=== PATIENT | male | born 1975 | race African-American/Black ===

== ENCOUNTER 2019-07-15 07:55 | Day surgery (SDC) | payer OTHER ==
[2019-07-14 13:08] LABS: HEMATOCRIT 47.2 % (42.0-54.0); HEMOGLOBIN 16.5 g/dL (13.5-17.5); MCH 32.4 pg (26.0-34.0); MCV 92.7 fL (80.0-100.0); MEAN PLATELET VOLUME 10.3 fL (7.4-10.4); RBC 5.09 10x6/uL (4.20-6.10); RDW 13.8 % (11.5-14.5)
[~2019-07-15] VITALS: Ht 175.3 cm; Wt 104.3 kg
[~2019-07-15 07:55] MED LIST: COZAAR25 MG; NORVASC10 MG PO
[2019-07-15 08:48] VITALS: BP 162/102; Ht 175.3 cm; Wt 104.3 kg
[2019-07-15] MEDS ORDERED: VISTARIL50 MG PO (11:28)
[2019-07-15] MEDS ORDERED: PERCOCET 10-321 EAC1 PO (11:28)
[2019-07-15] MEDS ORDERED: ZOFRAN ODT4 MG/UDTAB PO (11:29)
[2019-07-15] MEDS ORDERED: TORADOL10 MG PO (11:29)
--- NOTE | 2019-07-17 14:16 | OP ---
PATIENT NAME: CELINE WILKES MEDICAL RECORD: [id number] :73 LOCATION:[facility] ADMISSION DATE: SURGEON: CHRISTIAN WADE DO DATE OF OPERATION: 07/15/2019 PROCEDURE PERFORMED: Right shoulder arthroscopy with rotator cuff repair, biceps tenodesis, labral debridement, subacromial decompression, distal clavicle excision. PREOPERATIVE DIAGNOSES: Right shoulder rotator cuff tear, superior labral anterior-posterior tear, acromioclavicular joint arthritis and subacromial impingement. POSTOPERATIVE DIAGNOSES: Right shoulder rotator cuff tear, superior labral anterior-posterior tear, acromioclavicular joint arthritis and subacromial impingement. INDICATIONS: Mr. Wilkes is a 44-year-old male who has had right shoulder pain for quite some time. He is tired dealing with it. He got an MRI, showed the above findings. I informed him of the risk including retear, infection, bleeding, nonhealing tear. Rotator cuff tear was repaired with Regeneten patch. He was aware of the risks including infection, bleeding, damage to nerves and vessels, need for further surgery, continued shoulder pain, retear of the rotator cuff and not healing as well as the restrictions with motion. He was okay with those and signed the consent. SURGEON: Christian Wade DO DESCRIPTION OF PROCEDURE: The patient was given a block by anesthesia in the preoperative area, taken to the operative suite, laid in the left lateral decubitus position with right shoulder up. He was given 2 grams Ancef and 900 mg clindamycin preoperatively. He was sedated and LMA was placed. Right shoulder was then prepped and draped in sterile fashion. Timeout was performed, everyone was in agreeance with the correct side, site, patient and procedure. We then began with insufflating the shoulder joint itself through the posterior portal with an 18-gauge spinal needle. A 60 cc of normal saline into the joint. The posterior portal was then established with 11-blade scalpel and trocar was entered in the shoulder joint. Anterior portal was then established with an 18-gauge spinal needle and 11-blade scalpel. I then inspected the shoulder. The rotator cuff tear was seen in the supraspinatus, it was a full thickness tear. Subscap looked good. There are no tears in it as well as the infraspinatus. There were no loose bodies seen in the inferior pouch. The bicep tendon was then cut with a burner and the labrum was debrided. The subacromial space was then entered and subacromial decompression was done as well as the distal clavicle excision. The tear was then identified also on the bursal side after the 11-blade scalpel was used to establish a lateral portal after 18-gauge spinal needle was put in. This was all done through the lateral portal and the anterior portal as well. The lateral portal was then extended. Careful dissection was made down to the tear itself and a double row anchors were used, with medial first and then bit through the tendon with Scorpion and to a lateral row with anchors to make a nice repair. The Regeneten was then placed on top of that and stapled into place. The attention was then drawn to the bicep tendon part and an anterior incision was made on the humerus. Careful dissection was made down to the long head of the biceps tendon. This was dissected out and pulled out through there and whipstitched and then a OPERATIVE REPORT [id number] CELINE WILKES JugKelly anchor was used to put in the humerus and then this was cinched down after being tied and looped through, cinched down to the humerus, sutured into place and then a free needle was used to go back through the tendon and tied down, securing it doubly. This was tied down. Excess tendon and suture were cut at that time. The sites were irrigated thoroughly with normal saline. The anterior humerus incision was closed with 2-0 Vicryl in an inverted interrupted fashion, 4-0 Monocryl ran on the skin and Dermabond on the skin. The rotator cuff repair on the lateral shoulder was repaired in the same fashion and the two portal sites anterior and posterior closed with 4-0 Monocryl in an inverted interrupted fashion. Dermabond glue placed on the skin. They were all dressed with Telfa and Tegaderm. He was then awakened and taken to recovery room and placed in a sling with a pillow in stable condition. BLOOD LOSS: Minimal. COMPLICATIONS: None. The distal clavicle excision was done also to the anterior portal and was opened up the AC joint to approximately 7 mm. TRANSINT:[id number] Voice Confirmation ID: [id number] DOCUMENT ID: [id number] CHRISTIAN WADE, DO at 1416 CC: [id number] DICTATION DATE: 07/15/19 1134 SHIPPING HAND: 07/15/19 1531 [facility] [place] 07/15/19 [id number] [place] [address]
== END 2019-07-15 13:45 | disposition home or self-care (01) ==
LOC: D.OPS 07:55 → D.PAN 10:15 → D.OPS 13:45
PROVIDERS: Anesthesiology; ATTEND Orthopaedic Surgery
DX: M75.101 Unspecified rotator cuff tear or rupture of right shoulder, not specified as traumatic (principal); T14.8XXA Other injury of unspecified body region, initial encounter; M13.819 Other specified arthritis, unspecified shoulder; M25.80 Other specified joint disorders, unspecified joint; I10 Essential (primary) hypertension